=== PATIENT | male | born 1955 | race Caucasian/White ===

== ENCOUNTER 2020-05-13 04:20 | Inpatient (IN) | payer MEDICARE ==
[~2020-05-13] VITALS: Ht 175.3 cm; Wt 113.4 kg
--- NOTE | 2020-05-13 04:44 | NUR ---
rajeev Hays from home c/o sob, general weakness, fever x 1 week, worse tonight to er bed 5 awaiting md mckeon
--- NOTE | 2020-05-13 05:18 | NUR ---
tech at beside for xray
--- NOTE | 2020-05-13 05:30 | NUR ---
covid swab collected and sent to lab
[2020-05-13 05:46] LABS: BASOPHILS % (AUTO) 0.2 % (0.0-2.0); HEMATOCRIT 44 % (39-51); HEMOGLOBIN 14.9 g/dL (13.5-17.5); LYMPHOCYTES # (AUTO) 1.7 /CMM (0.8-4.8); LYMPHOCYTES % (AUTO) 26.6 % (20.0-44.0); MEAN CORPUSCULAR HGB CONC 34 g/dl (31.0-36.0); MEAN CORPUSCULAR VOLUME 86 fL (80-96); MONOCYTES # (AUTO) 0.6 /CMM (0.1-1.30); MONOCYTES % (AUTO) 8.6 % (2.0-12.0); NEUTROPHILS # (AUTO) 4.2 /CMM (1.8-8.9); NEUTROPHILS % (AUTO) 64.6 % (43.0-81.0); PLATELET COUNT (AUTO) 230 /CMM (150-450); RED BLOOD CELL COUNT(AUTO) 5.11 MIL/uL (4.5-6.0); WHITE BLOOD COUNT (AUTO) 6.6 K/uL (4.3-11.0)
[2020-05-13 05:54] LABS: CALCIUM, SERUM 8.6 mg/dL (8.5-10.1); CREATININE 0.9 mg/dL (0.6-1.3); POTASSIUM 3.1 mmol/L (3.5-5.1)
[2020-05-13 06:06] LABS: ALBUMIN 2.4 g/dL (3.4-5.0); BILIRUBIN,DIRECT 0.2 mg/dL (0.0-0.2); BILIRUBIN,TOTAL 0.3 mg/dL (0.2-1.0)
[2020-05-13] MEDS ORDERED: CEFTRIAXONE 1 G in IV D5W 50 ML IV SCH (06:30)
[2020-05-13] MEDS ORDERED: DEXAMETHASONE SOD PHOSPHATE 10 MG/ML VIAL IV ONE (06:30)
[2020-05-13] MEDS ORDERED: AZITHROMYCIN 500 MG in IV D5W 250 ML IV ONE (06:30)
[2020-05-13] MEDS ORDERED: AZITHROMYCIN 500 MG VIAL ONE (06:53)
[2020-05-13] MEDS ORDERED: CEFTRIAXONE 1GM BAG (ER ONLY) 50 ML IV ONE (06:53)
[2020-05-13] MEDS ORDERED: DEXAMETHASONE SOD PHOSPHATE 10 MG/ML VIAL ONE (06:53)
--- NOTE | 2020-05-13 07:15 | NUR ---
lab called,covid possitive
--- NOTE | 2020-05-13 08:00 | NUR ---
pt in bed aaox4. breathing even and unlabored. on o2 via nc @ 2lpm satting @ 95%.
[2020-05-13] MEDS ORDERED: ACETAMINOPHEN 325 MG TABLET PO PRN (09:00)
[2020-05-13] MEDS ORDERED: Z GUARD REMEDY 2 OZ OINT TP PRN (09:00)
[2020-05-13] MEDS ORDERED: MAG HYDROX/AL HYDROX/SIMETH 30 ML UDC PO PRN (09:00)
[2020-05-13] MEDS ORDERED: MAGNESIUM HYDROXIDE 30 ML UDC PO PRN (09:00)
[2020-05-13] MEDS ORDERED: ONDANSETRON HCL/PF 4 MG/2 ML VIAL IVP PRN (09:00)
[2020-05-13] MEDS ORDERED: DULO60CA45 PO (09:18)
[2020-05-13] MEDS: DEXAMETHASONE SOD PHOSPHATE 10 MG/ML VIAL IV SCH (10:00)
[2020-05-13] MEDS: ENOXAPARIN SODIUM 40 MG/0.4 ML DISP.SYRIN SQ SCH (10:00)
--- NOTE | 2020-05-13 12:30 | NUR ---
pt provided with food
--- NOTE | 2020-05-13 16:00 | NUR ---
PT IN BED RESTING AND WATCHING ON HIS PHONE. NAD
[2020-05-13] MEDS: ASPIRIN 81 MG TAB.CHEW PO SCH (19:28)
--- NOTE | 2020-05-13 19:39 | NUR ---
PT ENDOSED TO [facility]
--- NOTE | 2020-05-13 22:55 | NUR ---
TOOK OVER PT CARE. PT AAOX4. RESTING COMFORTABLY. PT REPOSITIONED, PROVIDED WITH WARM BLANEKTS. ON CRYPTOGRAPHIC CLERK AND PULSE OX. CALL LIGHT AT BEDSIDE. VSS. REMASINS ON 2L NC. SAT 97%.
[2020-05-14 03:44] LABS: BASOPHILS % (AUTO) 0.5 % (0.0-2.0); HEMATOCRIT 47 % (39-51); LYMPHOCYTES # (AUTO) 1.6 /CMM (0.8-4.8); LYMPHOCYTES % (AUTO) 22.2 % (20.0-44.0); MEAN CORPUSCULAR HGB CONC 34 g/dl (31.0-36.0); MEAN CORPUSCULAR VOLUME 87 fL (80-96); MONOCYTES # (AUTO) 0.6 /CMM (0.1-1.30); MONOCYTES % (AUTO) 8.2 % (2.0-12.0); NEUTROPHILS % (AUTO) 69.1 % (43.0-81.0); PLATELET COUNT (AUTO) 252 /CMM (150-450); RED BLOOD CELL COUNT(AUTO) 5.45 MIL/uL (4.5-6.0); WHITE BLOOD COUNT (AUTO) 7.3 K/uL (4.3-11.0)
[2020-05-14 03:55] LABS: CALCIUM, SERUM 9.5 mg/dL (8.5-10.1); CREATININE 1.1 mg/dL (0.6-1.3); MAGNESIUM 2.4 mg/dL (1.8-2.4); PHOSPHORUS 4.5 mg/dL (2.5-4.9); POTASSIUM 3.9 mmol/L (3.5-5.1)
--- NOTE | 2020-05-14 07:05 | NUR ---
PT IN BED AWAKE AND ALERT. BREATHING EVENLY . ON SUPPLEMENTAL O2 VIA NC. NO SOB. AFEBRILE. NO C/O PAIN OR DISCOMFORT . NEEDS ATTENDED. BED LOW LOCKED . CALL LIGHT WITHIN REACH. WILL CONT TO MONITOR ,
[2020-05-14] MEDS: PANTOPRAZOLE 40 MG TABLET.DR PO SCH (07:07)
[2020-05-14] MEDS: ASPIRIN 81 MG TAB.CHEW PO SCH (09:55)
[2020-05-14] MEDS: DEXAMETHASONE SOD PHOSPHATE 10 MG/ML VIAL IV SCH (09:55)
[2020-05-14] MEDS: ENOXAPARIN SODIUM 40 MG/0.4 ML DISP.SYRIN SQ SCH (09:55)
--- NOTE | 2020-05-14 12:30 | NUR ---
Pt was sleeping in bed. easily arrousable. meal provided
[2020-05-14] MEDS ORDERED: DEXTROSE 50%-WATER 50 ML DISP.SYRIN IV PRN (13:30)
--- NOTE | 2020-05-14 15:50 | NUR ---
pt ambulated to bathroom on steady gait w/o assist.
[2020-05-14] MEDS ORDERED: REMDESIVIR (CHARGED) 200 MG, *LOADING DOSE 1 EA in IV NS 0.9% 210 ML IV ONE (16:30)
[2020-05-14] MEDS: BLOOD SUGAR DIAGNOSTIC 1 EACH STRIP VI SCH ×2 (19:30→21:41)
[2020-05-14] MEDS: INSULIN REGULAR, HUMAN 100 UNIT/ML 3 ML VIAL SQ PRN (20:04)
--- NOTE | 2020-05-14 20:55 | NUR ---
pt given new gown to change into. bed linens changed as well. pt's needs attended to.
--- NOTE | 2020-05-14 21:40 | NUR ---
ACCUCHECK FOR LANTUS AND REGULAR INSULIN HS. RESULT 398
[2020-05-14] MEDS: INSULIN GLARGINE, 100 UNIT/ML CARTRIDGE SQ SCH (21:45)
[2020-05-14] MEDS: *INSULIN REGULAR(HUMULIN R)HUM 100 UNIT/ML VIAL SQ PRN (21:45)
--- NOTE | 2020-05-14 22:34 | NUR ---
PT ENDORSED TO [facility]
[2020-05-15 04:33] LABS: BASOPHILS % (AUTO) 0.1 % (0.0-2.0); HEMATOCRIT 48 % (39-51); HEMOGLOBIN 16.1 g/dL (13.5-17.5); LYMPHOCYTES # (AUTO) 2.1 /CMM (0.8-4.8); LYMPHOCYTES % (AUTO) 13.2 % (20.0-44.0); MEAN CORPUSCULAR HGB CONC 33 g/dl (31.0-36.0); MEAN CORPUSCULAR VOLUME 87 fL (80-96); MONOCYTES # (AUTO) 0.7 /CMM (0.1-1.30); MONOCYTES % (AUTO) 4.6 % (2.0-12.0); NEUTROPHILS # (AUTO) 12.8 /CMM (1.8-8.9); NEUTROPHILS % (AUTO) 82.1 % (43.0-81.0); PLATELET COUNT (AUTO) 299 /CMM (150-450); RED BLOOD CELL COUNT(AUTO) 5.55 MIL/uL (4.5-6.0); WHITE BLOOD COUNT (AUTO) 15.6 K/uL (4.3-11.0)
[2020-05-15 04:50] LABS: ALBUMIN 2.4 g/dL (3.4-5.0); BILIRUBIN,DIRECT 0.1 mg/dL (0.0-0.2); BILIRUBIN,TOTAL 0.4 mg/dL (0.2-1.0); CALCIUM, SERUM 9.8 mg/dL (8.5-10.1); POTASSIUM 4.6 mmol/L (3.5-5.1); TOTAL PROTEIN, SERUM 7.3 g/dL (6.4-8.2)
[2020-05-15] MEDS: BLOOD SUGAR DIAGNOSTIC 1 EACH STRIP VI SCH ×4 (07:56→22:23)
--- NOTE | 2020-05-15 07:57 | NUR ---
assume patient care. vss. BG check 156. provided w/ meal tray. no appetite at this time. requested orange juice. provided.
[2020-05-15] MEDS: PANTOPRAZOLE 40 MG TABLET.DR PO SCH (08:09)
[2020-05-15] MEDS: ASPIRIN 81 MG TAB.CHEW PO SCH (09:16)
[2020-05-15] MEDS: DEXAMETHASONE SOD PHOSPHATE 10 MG/ML VIAL IV SCH (09:22)
[2020-05-15] MEDS: ENOXAPARIN SODIUM 40 MG/0.4 ML DISP.SYRIN SQ SCH (09:23)
[2020-05-15] MEDS: INSULIN REGULAR, HUMAN 100 UNIT/ML 3 ML VIAL SQ PRN ×3 (09:24→17:52)
--- NOTE | 2020-05-15 14:10 | NUR ---
provided w/ meal tray. stable vitals. need attended.
[2020-05-15] MEDS: REMDESIVIR (CHARGED) 100 MG in IV NS 0.9% 230 ML IV SCH (18:34)
--- NOTE | 2020-05-15 19:35 | NUR ---
REPORT GIVEN TO ТАТЬЯНА NORWOOD FOR CORIE.
--- NOTE | 2020-05-15 19:40 | NUR ---
rec'd pt in bed awake and alert. pt was placed on o2 at 10lpm via simple mask due to low o2 sat and non compliance with NC. pt was advised to keep the mask on at all time. pt is requesting ambien due to inability to sleep at night, will be carried out. no s/s of hypo or hyperglycemia noted . all needs attended. warm blanket applied. bed in low locked position w. call light within reach,. will cont to monitor,
[2020-05-15] MEDS ORDERED: ZOLPIDEM TARTRATE 5 MG TABLET ONE (21:45)
[2020-05-15] MEDS: INSULIN GLARGINE, 100 UNIT/ML CARTRIDGE SQ SCH (22:23)
[2020-05-15] MEDS: ZOLPIDEM TARTRATE 5 MG TABLET PO PRN (22:24)
[2020-05-15] MEDS: *INSULIN REGULAR(HUMULIN R)HUM 100 UNIT/ML VIAL SQ PRN (22:27)
--- NOTE | 2020-05-15 22:28 | NUR ---
AMBIEN GIVEN PER PT'S REQUEST AND C/O INSOMNIA. PT WAS PLACED ON O2 AT 10LPM VIA SIMPLE MASK AND REMAINED ON COBOL APPLICATION DEVELOPER .
--- NOTE | 2020-05-15 23:25 | NUR ---
pt in bed resting comfortably. breathing evenly. on ongoing o2 supplement . tolerated well. no s/s or c/o SOB or pain or discomfrot ./ will cont to monitor ,
--- NOTE | 2020-05-16 03:13 | NUR ---
ELEVATED WITH BLOOD COUNT WS RELAYED TO MICHAEL BILLY, [facility] HOSPITALIST WITH A NEW ORDER FOR PROCALCITONIN AND CXR IN AM. NEW ORDER NOTED. PT REMAINED AFEBRILE W/ STABLE VS. WILL CONT TO MONITOR ,
[2020-05-16 05:38] LABS: ALBUMIN 2.2 g/dL (3.4-5.0); BILIRUBIN,DIRECT 0.2 mg/dL (0.0-0.2); BILIRUBIN,TOTAL 0.3 mg/dL (0.2-1.0); CALCIUM, SERUM 9.2 mg/dL (8.5-10.1); CREATININE 0.9 mg/dL (0.6-1.3); MAGNESIUM 2.3 mg/dL (1.8-2.4); PHOSPHORUS 3.7 mg/dL (2.5-4.9); POTASSIUM 4.6 mmol/L (3.5-5.1); TOTAL PROTEIN, SERUM 6.9 g/dL (6.4-8.2)
[2020-05-16] MEDS: PANTOPRAZOLE 40 MG TABLET.DR PO SCH (08:30)
[2020-05-16] MEDS: BLOOD SUGAR DIAGNOSTIC 1 EACH STRIP VI SCH ×4 (08:30→22:01)
--- NOTE | 2020-05-16 08:30 | NUR ---
bs checked 172
[2020-05-16] MEDS: DEXAMETHASONE SOD PHOSPHATE 10 MG/ML VIAL IV SCH (08:44)
[2020-05-16] MEDS: ASPIRIN 81 MG TAB.CHEW PO SCH (08:44)
[2020-05-16] MEDS: ENOXAPARIN SODIUM 40 MG/0.4 ML DISP.SYRIN SQ SCH (08:46)
--- NOTE | 2020-05-16 09:11 | NUR ---
provided pt with breakfast but pt states that he does not want to eat at the moment b/c he doesnt have any appetite. bs insulin sliding scale held.
[2020-05-16 09:33] LABS: BASOPHILS % (AUTO) 0.2 % (0.0-2.0); HEMATOCRIT 46 % (39-51); HEMOGLOBIN 15.4 g/dL (13.5-17.5); LYMPHOCYTES # (AUTO) 1.9 /CMM (0.8-4.8); LYMPHOCYTES % (AUTO) 18.1 % (20.0-44.0); MEAN CORPUSCULAR HGB CONC 33 g/dl (31.0-36.0); MEAN CORPUSCULAR VOLUME 87 fL (80-96); MONOCYTES # (AUTO) 0.7 /CMM (0.1-1.30); MONOCYTES % (AUTO) 6.3 % (2.0-12.0); NEUTROPHILS % (AUTO) 75.4 % (43.0-81.0); PLATELET COUNT (AUTO) 276 /CMM (150-450); WHITE BLOOD COUNT (AUTO) 10.7 K/uL (4.3-11.0)
[2020-05-16] MEDS: INSULIN REGULAR, HUMAN 100 UNIT/ML 3 ML VIAL SQ PRN ×2 (12:08→18:07)
--- NOTE | 2020-05-16 12:33 | NUR ---
provided pt with lunch ate 75%
[2020-05-16] MEDS: REMDESIVIR (CHARGED) 100 MG in IV NS 0.9% 230 ML IV SCH (16:00)
--- NOTE | 2020-05-16 18:27 | NUR ---
IV LINE RE-INSERTED ON LEFT AC G20
--- NOTE | 2020-05-16 19:30 | NUR ---
Note chrisone in EDM - 05/16/20 at 2041 by ANTHONY REC'D PT IN BED AWAKE , STASNDING AT BED SIDE. HAS REMOVED HIS SUPPLEMENTAL O2 . SATTING ON 70s. PT WAS ASSISTED BACK IN BED AND PLACED PT BACK ON HIGH FLOW O2 AND NON REBREATHER MASK. PT WAS ADVISED TO STAY IN BED AND KEEP THE O2 SUPLEMNTS DEVISES IN PLACE. PT WAS PLACED BACK ON FULL MONITOR. AND STAYED WITH PT. O2 SATURATION GRADULLY INCREASED TO 90s. WILL CONT TO MONITOR.
--- NOTE | 2020-05-16 19:32 | NUR ---
REC'D PT IN BED AWAKEAND ALERT. ON NON REBREATHER MASK, BREATHING EVENLY. PT WAS ADVISED TO KEEP THE O2 MASK IN PLACE. REMAINED O2 MONITOR.
--- NOTE | 2020-05-16 20:30 | NUR ---
Note tremayne in EDM - 05/16/20 at 2041 by ANTHONY FOUND PT SATTING ON 76% ON MONTIOR, CHECKED ON PT. NOTED PT REMOVED HIS MASK AND HIGH FLOW O2. PT WAS ADVISED TO KEEP THE SUPPLEMENTAL O2 IN PLACE. WILL CONT TO MONITOR ,
[2020-05-16] MEDS ORDERED: ZOLPIDEM TARTRATE 5 MG TABLET ONE (21:31)
[2020-05-16] MEDS: INSULIN GLARGINE, 100 UNIT/ML CARTRIDGE SQ SCH (22:01)
[2020-05-16] MEDS: *INSULIN REGULAR(HUMULIN R)HUM 100 UNIT/ML VIAL SQ PRN (22:05)
--- NOTE | 2020-05-16 22:05 | NUR ---
w/ c/o insomnia, requesting ambien given ,. pt remained on o2 at 15lpm via non rebreather mask and on full monitor
[2020-05-17 04:38] LABS: BASOPHILS % (AUTO) 0.1 % (0.0-2.0); HEMATOCRIT 46 % (39-51); HEMOGLOBIN 15.3 g/dL (13.5-17.5); LYMPHOCYTES # (AUTO) 1.3 /CMM (0.8-4.8); MEAN CORPUSCULAR HGB CONC 33 g/dl (31.0-36.0); MEAN CORPUSCULAR VOLUME 87 fL (80-96); MONOCYTES # (AUTO) 0.6 /CMM (0.1-1.30); MONOCYTES % (AUTO) 5.1 % (2.0-12.0); NEUTROPHILS # (AUTO) 9.8 /CMM (1.8-8.9); NEUTROPHILS % (AUTO) 83.8 % (43.0-81.0); PLATELET COUNT (AUTO) 291 /CMM (150-450); RED BLOOD CELL COUNT(AUTO) 5.31 MIL/uL (4.5-6.0); WHITE BLOOD COUNT (AUTO) 11.7 K/uL (4.3-11.0)
[2020-05-17 04:52] LABS: ALBUMIN 2.1 g/dL (3.4-5.0); BILIRUBIN,DIRECT 0.1 mg/dL (0.0-0.2); BILIRUBIN,TOTAL 0.3 mg/dL (0.2-1.0); CALCIUM, SERUM 9.5 mg/dL (8.5-10.1); CREATININE 0.9 mg/dL (0.6-1.3); MAGNESIUM 2.3 mg/dL (1.8-2.4); PHOSPHORUS 3.6 mg/dL (2.5-4.9); POTASSIUM 3.9 mmol/L (3.5-5.1); TOTAL PROTEIN, SERUM 6.9 g/dL (6.4-8.2)
[2020-05-17] MEDS: BLOOD SUGAR DIAGNOSTIC 1 EACH STRIP VI SCH ×4 (07:24→22:17)
[2020-05-17] MEDS: INSULIN REGULAR, HUMAN 100 UNIT/ML 3 ML VIAL SQ PRN ×3 (07:35→18:46)
[2020-05-17] MEDS: PANTOPRAZOLE 40 MG TABLET.DR PO SCH (07:35)
[2020-05-17] MEDS: DEXAMETHASONE SOD PHOSPHATE 10 MG/ML VIAL IV SCH (09:45)
[2020-05-17] MEDS: ENOXAPARIN SODIUM 40 MG/0.4 ML DISP.SYRIN SQ SCH (09:45)
[2020-05-17] MEDS: ASPIRIN 81 MG TAB.CHEW PO SCH (09:45)
[2020-05-17] MEDS: REMDESIVIR (CHARGED) 100 MG in IV NS 0.9% 230 ML IV SCH (17:30)
--- NOTE | 2020-05-17 19:40 | NUR ---
REC'S PT IN BED AWAKE AND ALERT. BREATHING EVENLY, ON O2 AT 15LPM VIA NON REBREATHER MASK JANES WELL . NO SOB. NO C/O PAIN OR DISCOMFORT . BED LOW LOCKED . CALL LIGHT WITHIN REACH. WILL CONT TO MONITOR ,
[2020-05-17] MEDS ORDERED: ZOLPIDEM TARTRATE 5 MG TABLET ONE (20:41)
--- NOTE | 2020-05-17 21:00 | NUR ---
CONSENT FOR CONVASCENT PLASMA INFUSION WAS OBTAINED FROM THE PT WHO PERSONALLY SIGNED THE FORM .
--- NOTE | 2020-05-17 21:20 | NUR ---
A NEW PIV 18G STARTED ON RAC W/ GOOD BLOOD DRAW. PLASMA TRANSFUSION STARTED . A SET OF PRE TRANSFION VS OBTAINED . AFEBRILE WITH NO C/O PAIN OR DISCOMFORT. WILL CONT TO MONITOR FOR ANY A/R
--- NOTE | 2020-05-17 22:00 | NUR ---
CONVALESCENT PLASMA INFUSION COMPLETED W. NO A/D, NO CP, NO C/O FLANK PAIN. AFEBRILE. PT DNEIED ANY PAIN OR DISCOMFORT . VSS. WILL CONT TO MONITOR,
[2020-05-17] MEDS: INSULIN GLARGINE, 100 UNIT/ML CARTRIDGE SQ SCH (22:17)
[2020-05-17] MEDS: ZOLPIDEM TARTRATE 5 MG TABLET PO PRN (22:17)
--- NOTE | 2020-05-17 22:17 | NUR ---
w/ c/o insomnia, requesting ambien given ,. pt remained on o2 at 15lpm via non rebreather mask and on full monitor
[2020-05-17] MEDS: *INSULIN REGULAR(HUMULIN R)HUM 100 UNIT/ML VIAL SQ PRN (22:18)
--- NOTE | 2020-05-17 23:30 | NUR ---
PT IN BED SLEEPING . AROUSES EASILY. BREATHING EVENLY. ON ONGOING MONITORING
[2020-05-18 05:29] LABS: BASOPHILS # (AUTO) 0.2 /CMM (0.0-0.2); BASOPHILS % (AUTO) 1.6 % (0.0-2.0); EOSINOPHILS % (AUTO) 0.1 % (0.0-6.0); HEMATOCRIT 47 % (39-51); HEMOGLOBIN 15.8 g/dL (13.5-17.5); LYMPHOCYTES # (AUTO) 1.5 /CMM (0.8-4.8); LYMPHOCYTES % (AUTO) 11.6 % (20.0-44.0); MEAN CORPUSCULAR HGB CONC 34 g/dl (31.0-36.0); MEAN CORPUSCULAR VOLUME 87 fL (80-96); MONOCYTES # (AUTO) 0.6 /CMM (0.1-1.30); MONOCYTES % (AUTO) 4.6 % (2.0-12.0); NEUTROPHILS # (AUTO) 10.6 /CMM (1.8-8.9); NEUTROPHILS % (AUTO) 82.1 % (43.0-81.0); PLATELET COUNT (AUTO) 341 /CMM (150-450); RED BLOOD CELL COUNT(AUTO) 5.41 MIL/uL (4.5-6.0); WHITE BLOOD COUNT (AUTO) 12.9 K/uL (4.3-11.0)
[2020-05-18 06:17] LABS: ALBUMIN 2.4 g/dL (3.4-5.0); BILIRUBIN,DIRECT 0.2 mg/dL (0.0-0.2); BILIRUBIN,TOTAL 0.3 mg/dL (0.2-1.0); CALCIUM, SERUM 9.5 mg/dL (8.5-10.1); CREATININE 0.8 mg/dL (0.6-1.3); MAGNESIUM 2.1 mg/dL (1.8-2.4); PHOSPHORUS 3.5 mg/dL (2.5-4.9); POTASSIUM 3.6 mmol/L (3.5-5.1); TOTAL PROTEIN, SERUM 7.3 g/dL (6.4-8.2)
[2020-05-18 06:30] VITALS: BP 144/82
--- NOTE | 2020-05-18 06:39 | NUR ---
pt was transferred to md 2 rm [id number] under ACLS
--- NOTE | 2020-05-18 06:40 | NUR ---
TELE/RN ADMITTING NOTES: RECEIVED REPORT FROM ER NURSE ТАТЬЯНА PT ARRIVED TO THE UNIT IN STABLE CONDITION UNDER ACLS PROTOCOL. PT IS ON NON REBREATHER 10L. NO SOB NOTED, NO S/S OF ACUTE DISTRESS. BREATHING EVEN AND UNLABORED. NO C/O PAIN AT THIS TIME. IV ON THE LAC #20G AND RAC #18G SL. PT IS A/OX4, VERBALLY RESPONSIVE AND ABLE TO MAKE NEEDS KNOWN. AMBULATORY WITH STANDBY ASSIST PER ER NURSE. ON CARDIAC MONITORING WITH READING OF SR 60'S WITH PACS. S/P CONVALESCENT PLASMA GIVEN IN THE ER 05/17/25. SAFETY MEASURES IN PLACE. BED IN LOW, LOCKED POSITION WITH SR UP X2. CALL LIGHT WITHIN REACH. ORIENTED TO UNIT AND STAFF. CALL LIGHT WITHIN REACH AND WILL ENDORSE TO DAY SHIFT FOR CORIE.
[2020-05-18] MEDS: INSULIN REGULAR, HUMAN 100 UNIT/ML 3 ML VIAL SQ PRN ×2 (07:00→11:43)
[2020-05-18] MEDS: BLOOD SUGAR DIAGNOSTIC 1 EACH STRIP VI SCH ×4 (07:00→21:43)
--- NOTE | 2020-05-18 07:25 | NUR ---
SPEECH AND LANGUAGE TUTOR NOTES PATIENT RECEIVED IN BED, ALERT AND ORIENTED 3-4. ON SIMPLE FACE MASK 10L, TOLERATING OXYGEN AT THIS TIME WITH NO RESPIRATORY DISTRESS PRESENT AT THIS TIME. ON COMFORT ADVISOR, SINUS RHYTHM, 79 WITH PAC'S. SKIN WARM AND DRY TO TOUCH. IV ACCESS INTACT AND PATENT. PATIENT PRESENTING WITH NO PAIN AT THIS TIME. SAFETY PRECAUTIONS IMPLEMENTED WITH BED LOCKED, BILATERAL SIDE RAILS UP, BED ALARM ON, BED IN THE LOWEST POSITION, AND CALL LIGHT WITHIN EASY REACH. WILL CONTINUE TO MONITOR PATIENT.
[2020-05-18 08:00] VITALS: BP_SYST 139; BP_SYST 144; BP_DIAS 82; BP_DIAS 91
[2020-05-18] MEDS: DEXAMETHASONE SOD PHOSPHATE 10 MG/ML VIAL IV SCH (09:06)
[2020-05-18] MEDS: PANTOPRAZOLE 40 MG TABLET.DR PO SCH (09:06)
[2020-05-18] MEDS: ASPIRIN 81 MG TAB.CHEW PO SCH (09:06)
[2020-05-18] MEDS: ENOXAPARIN SODIUM 40 MG/0.4 ML DISP.SYRIN SQ SCH (09:11)
[2020-05-18 12:00] VITALS: BP 113/54
[2020-05-18 16:00] VITALS: BP 131/69
[2020-05-18] MEDS: REMDESIVIR (CHARGED) 100 MG in IV NS 0.9% 230 ML IV SCH (17:02)
[2020-05-18] MEDS: *INSULIN REGULAR(HUMULIN R)HUM 100 UNIT/ML VIAL SQ PRN ×2 (17:15→22:32)
--- NOTE | 2020-05-18 18:56 | NUR ---
BOTTOM HOOP DRIVER NOTES PATIENT IN BED, ALERT AND ORIENTED X 3-4. ON SIMPLE FACE MASK 10L, TOLERATING OXYGEN AT THIS TIME WITH NO RESPIRATORY DISTRESS PRESENT AT THIS TIME. ON LIBRARY MEDIA ASSISTANT, SINUS RHYTHM, PATIENT SKIN KEPT CLEAN, WARM AND DRY TO TOUCH. IV ACCESS INTACT AND PATENT. MET ALL OF PATIENT'S NEEDS. PATIENT PRESENTING WITH NO PAIN AT THIS TIME. SAFETY PRECAUTIONS IMPLEMENTED WITH BED LOCKED, BILATERAL SIDE RAILS UP, BED ALARM ON, BED IN THE LOWEST POSITION, AND CALL LIGHT WITHIN EASY REACH. WILL ENDORSE PLAN OF CARE TO UPCOMING RN.
--- NOTE | 2020-05-18 19:35 | NUR ---
TELE/RN OPENING NOTES: PATIENT RECEIVED IN BED, ALERT AND ORIENTED 3-4. ON SIMPLE FACE MASK 10L, TOLERATING OXYGEN AT THIS TIME, NO RESPIRATORY DISTRESS PRESENT AT THIS TIME. ON LAMINATING MACHINE OPERATOR HELPER, SINUS RHYTHM, 79 WITH PAC'S. SKIN WARM AND DRY TO TOUCH. IV ACCESS INTACT AND PATENT. NO COMPLAINS OF PAIN AT THIS TIME. SAFETY PRECAUTIONS IMPLEMENTED WITH BED LOCKED, BILATERAL SIDE RAILS UP, BED ALARM ON, BED IN THE LOWEST POSITION, AND CALL LIGHT WITHIN EASY REACH. WILL CONTINUE TO MONITOR PATIENT.
[2020-05-18 20:00] VITALS: BP 102/58
--- NOTE | 2020-05-18 21:50 | NUR ---
TELE/RN NOTES: PATIENT'S INSULIN LANTUS GLARGINE UNAVAILABLE AT THE FLOOR. CALLED ER TO CHECK IF THEY HAVE THE PATIENT'S MED. AND PER ER NURSE JORDAN, NOWHERE TO BE FOUND. WILL CALL NURSING PEOPLESOFT HCM DEVELOPER TO STOCK MED.
--- NOTE | 2020-05-18 22:00 | NUR ---
TELE/RN NOTES: ACCUCHECK FOR HS IS 316. 8UNITS REG INSULIN COVERAGE GIVEN PER SLIDING SCALE. PT IS STABLE. NO S/S OF HYPOGLYCEMIA/HYPERGLYCEMIA. GIVEN A SNACK TO PREVENT SUDDEN HYPOGLYCEMIA. WILL KEEP MONITORING.
--- NOTE | 2020-05-18 22:01 | NUR ---
TELE/RN NOTES: CALLED NURSING NETWORK PROGRAMMER ARA REGARDING PT'S INSULIN LANTUS GLARGINE UNAVAILABLE AT THE FLOOR. PER NURSING SUP, SHE WILL BRING IT UP TO THE FLOOR WHEN IT'S AVAILABLE.
[2020-05-18] MEDS ORDERED: INSULIN GLARGINE, 100 UNIT/ML CARTRIDGE SQ ONE (22:37)
[2020-05-18] MEDS ORDERED: HYDROCODONE/APAP 5/325MG TABLET ONE (22:40)
[2020-05-18] MEDS: HYDROCODONE/APAP 5/325MG TABLET PO PRN (22:45)
[2020-05-18] MEDS: INSULIN GLARGINE, 100 UNIT/ML CARTRIDGE SQ SCH (22:51)
[2020-05-19] VITALS (7 sets, daily range): BP systolic 107–135; BP diastolic 62–85
--- NOTE | 2020-05-19 06:29 | NUR ---
TELE/RN CLOSING NOTES: PATIENT REMAINS IN BED, ALERT AND ORIENTED X4. NO SIGNIFICANT CHANGES IN CONDITION. ON SIMPLE FACE MASK 10L, TOLERATING OXYGEN AT THIS TIME WITH NO RESPIRATORY DISTRESS PRESENT AT THIS TIME. SATURATING AT 94%. ON BRUSH FILLER HAND WITH READING OF SR 61. IV ACCESS REMAINS INTACT AND PATENT. ALL OF NURSING NEEDS MET AND RENDERED. ALL DUE MEDS GIVEN ORDERED. DENIES PAIN AT THIS TIME. SAFETY PRECAUTIONS IMPLEMENTED WITH BED LOCKED, BILATERAL SIDE RAILS UP, BED ALARM ON, BED IN THE LOWEST POSITION, AND CALL LIGHT WITHIN EASY REACH. WILL ENDORSE PLAN OF CARE TO DAYSHIFT RN.
--- NOTE | 2020-05-19 06:51 | NUR ---
TELE/RN NOTES: ACCUCHECK FOR AC IS 75. NO REG INSULIN COVERAGE GIVEN PER SLIDING SCALE. PT IS STABLE. NO S/S OF HYPOGLYCEMIA/HYPERGLYCEMIA. GIVEN A CRANBERRY JUICE PREVENT SUDDEN HYPOGLYCEMIA. WILL KEEP MONITORING.
[2020-05-19 06:53] LABS: BASOPHILS % (AUTO) 0.1 % (0.0-2.0); EOSINOPHILS % (AUTO) 0.1 % (0.0-6.0); HEMATOCRIT 43 % (39-51); HEMOGLOBIN 14.6 g/dL (13.5-17.5); LYMPHOCYTES # (AUTO) 2.3 /CMM (0.8-4.8); LYMPHOCYTES % (AUTO) 20.3 % (20.0-44.0); MEAN CORPUSCULAR HGB CONC 34 g/dl (31.0-36.0); MEAN CORPUSCULAR VOLUME 86 fL (80-96); MONOCYTES # (AUTO) 0.6 /CMM (0.1-1.30); MONOCYTES % (AUTO) 5.4 % (2.0-12.0); NEUTROPHILS # (AUTO) 8.3 /CMM (1.8-8.9); NEUTROPHILS % (AUTO) 74.1 % (43.0-81.0); PLATELET COUNT (AUTO) 338 /CMM (150-450); RED BLOOD CELL COUNT(AUTO) 4.99 MIL/uL (4.5-6.0); WHITE BLOOD COUNT (AUTO) 11.2 K/uL (4.3-11.0)
[2020-05-19 07:14] LABS: ALBUMIN 2.1 g/dL (3.4-5.0); BILIRUBIN,DIRECT 0.2 mg/dL (0.0-0.2); BILIRUBIN,TOTAL 0.4 mg/dL (0.2-1.0); CALCIUM, SERUM 8.8 mg/dL (8.5-10.1); CREATININE 0.7 mg/dL (0.6-1.3); PHOSPHORUS 3.4 mg/dL (2.5-4.9); POTASSIUM 3.2 mmol/L (3.5-5.1); TOTAL PROTEIN, SERUM 6.6 g/dL (6.4-8.2)
--- NOTE | 2020-05-19 07:45 | NUR ---
RN NOTES Patient Received. Patient is noted in bed, awake, alert and oriented x4. Breathing even and non labored currently on 10L via Simple face mask. Patient was noted to be short of breath and noted with a low grade fever of 99.1. patient was placed on 15L via NRB with saturation noted to be 95%. Patient is noted with IV site to R AC 18G. Skin is intact. bed is in lowest position and locked. All needs attended to promptly. Will continue plan of care as ordered.
[2020-05-19] MEDS: BLOOD SUGAR DIAGNOSTIC 1 EACH STRIP VI SCH ×4 (09:02→22:21)
[2020-05-19] MEDS: ASPIRIN 81 MG TAB.CHEW PO SCH (09:08)
[2020-05-19] MEDS: PANTOPRAZOLE 40 MG TABLET.DR PO SCH (09:08)
[2020-05-19] MEDS: DEXAMETHASONE SOD PHOSPHATE 10 MG/ML VIAL IV SCH (09:08)
[2020-05-19] MEDS: ENOXAPARIN SODIUM 40 MG/0.4 ML DISP.SYRIN SQ SCH (09:09)
[2020-05-19] MEDS ORDERED: POTASSIUM CHLORIDE 20 MEQ TAB.PRT.SR PO ONE (11:00)
--- NOTE | 2020-05-19 12:00 | NUR ---
RN NOTE Patient noted with a temp of 97.9. No fever or chills noted. will continue to monitor.
[2020-05-19] MEDS: INSULIN REGULAR, HUMAN 100 UNIT/ML 3 ML VIAL SQ PRN ×2 (12:17→17:31)
--- NOTE | 2020-05-19 19:30 | NUR ---
RN NOTES Patient is noted in bed, awake, alert and oriented x4. Breathing even and non labored currently on 15L via NRB and is tolerating well. No acute distress noted. Patient is noted with IV site to left forearm 20G noted to be patent and intact. Accu checks rendered and insulin administered as per order. All medications administered as per order. Bed is in lowest position. All needs attended to promptly. Will continue plan of care as ordered.
--- NOTE | 2020-05-19 20:00 | NUR ---
CHAIRMAN OF THE BOARD NOTES SR-83 ON TELE MONITOR
--- NOTE | 2020-05-19 20:00 | NUR ---
DEVELOPMENT MANAGER NOTES RECEIVED ON BED A/O A/O X4,BREATHING NON LABORED,ON 15L NON RE BREATHER MASK,O2 SAT 95%.WITH SALINE LOCK LEFT FORE ARM INTACT AND PATENT.ISOLATION FOR COVID 19 POSITIVE.CALL LIGHT IN REACH,NEEDS ANTICIPATED.
[2020-05-19] MEDS: *INSULIN REGULAR(HUMULIN R)HUM 100 UNIT/ML VIAL SQ PRN (22:28)
[2020-05-19] MEDS: INSULIN GLARGINE, 100 UNIT/ML CARTRIDGE SQ SCH (22:29)
[2020-05-19] MEDS: HYDROCODONE/APAP 5/325MG TABLET PO PRN (22:47)
[2020-05-19] MEDS ORDERED: HYDROCODONE/APAP 5/325MG TABLET ONE (22:47)
--- NOTE | 2020-05-19 22:47 | NUR ---
STAINED GLASS GLAZIER HELPER NOTES C/O GENERALIZED PAIN,MEDICATED WITH NORCO 5/325MG,1 TAB PO ORDERED.
[2020-05-20] VITALS: BP_SYST 120; BP_SYST 128; BP_DIAS 79; BP_DIAS 80
[2020-05-20 04:00] VITALS: BP 120/80
--- NOTE | 2020-05-20 06:30 | NUR ---
EXTRUSION SUPERVISOR NOTES ACCU-CHECK BLOOD SUGAR CHECK 264,WILL COVER WITH HUMULIN R PER SLIDING SCALE.
[2020-05-20 07:25] LABS: BASOPHILS % (AUTO) 0.1 % (0.0-2.0); EOSINOPHILS % (AUTO) 0.8 % (0.0-6.0); HEMATOCRIT 45 % (39-51); HEMOGLOBIN 14.8 g/dL (13.5-17.5); LYMPHOCYTES # (AUTO) 1.6 /CMM (0.8-4.8); LYMPHOCYTES % (AUTO) 17.9 % (20.0-44.0); MEAN CORPUSCULAR HGB CONC 33 g/dl (31.0-36.0); MEAN CORPUSCULAR VOLUME 87 fL (80-96); MONOCYTES # (AUTO) 0.6 /CMM (0.1-1.30); MONOCYTES % (AUTO) 6.6 % (2.0-12.0); NEUTROPHILS # (AUTO) 6.7 /CMM (1.8-8.9); NEUTROPHILS % (AUTO) 74.6 % (43.0-81.0); PLATELET COUNT (AUTO) 351 /CMM (150-450); RED BLOOD CELL COUNT(AUTO) 5.11 MIL/uL (4.5-6.0)
--- NOTE | 2020-05-20 07:30 | NUR ---
TELE/RN OPENING NOTE Received patient resting in bed, A&O x 4, tagalog speaking. No complaints of pain/discomfort at this time. Breathing even and non-labored on 15 L via Nrb, saturating at 95%. No respiratory or cardiac distress noted. On tele monitor, reading SR 64. L FA #20 IV appears infiltrated and leaking, removed access and placed pressure and clean dry dressing on top. No s/s of infection or bleeding noted on site. Inserted new IV access on R FA #22g, patent and intact, and flushing well. Bed locked to its lowest position, side rails x 2 up, call light in hand. Will continue with current medical management.
--- NOTE | 2020-05-20 07:31 | NUR ---
DISREGARD NOTE BELOW, WRONG PATIENT
[2020-05-20 07:33] LABS: CALCIUM, SERUM 8.8 mg/dL (8.5-10.1); CREATININE 0.8 mg/dL (0.6-1.3); PHOSPHORUS 3.5 mg/dL (2.5-4.9); POTASSIUM 4.1 mmol/L (3.5-5.1)
--- NOTE | 2020-05-20 07:33 | NUR ---
RULING TECHNICIAN NOTES NO SIGNIFICANT CHANGE IN STATUS,95% ON NRB 15L,TOLERATED WELL.IN NOM ACUTE DISTRESS.ENDORSE TO MANOJ NORWOOD FOR CORIE.
--- NOTE | 2020-05-20 07:35 | NUR ---
TELE/RN OPENING NOTE Patient awake in bed, A&O x 4. No complaints of pain/discomfort at this time. Breathing even and non-labored on 15 L via Nrb, saturating at 95%. No respiratory or cardiac distress noted. On tele monitor, reading SR 83. L FA #20. IV appears infiltrated and leaking, removed access and placed pressure and clean dry dressing on top. No s/s of infection or bleeding noted on site. Inserted new IV access on R FA #22g, patent and intact, and flushing well. Bed locked to its lowest position, side rails x 2 up, call light in hand. Will continue with current medical management.
[2020-05-20] MEDS: BLOOD SUGAR DIAGNOSTIC 1 EACH STRIP VI SCH ×4 (07:37→22:07)
[2020-05-20] MEDS: INSULIN REGULAR, HUMAN 100 UNIT/ML 3 ML VIAL SQ PRN ×3 (07:42→17:17)
--- NOTE | 2020-05-20 07:46 | NUR ---
DIRECT CARE PROFESSIONAL NOTES HUMULIN R 9 UNITS GIVEN SQ PER SLIDING SCALE
[2020-05-20 08:00] VITALS: BP 107/55
[2020-05-20] MEDS: PANTOPRAZOLE 40 MG TABLET.DR PO SCH (08:14)
[2020-05-20] MEDS: ENOXAPARIN SODIUM 40 MG/0.4 ML DISP.SYRIN SQ SCH (08:15)
[2020-05-20] MEDS: DEXAMETHASONE SOD PHOSPHATE 10 MG/ML VIAL IV SCH (08:15)
[2020-05-20] MEDS: ASPIRIN 81 MG TAB.CHEW PO SCH (08:15)
[2020-05-20 12:00] VITALS: BP 112/76
[2020-05-20 16:00] VITALS: BP 110/84
--- NOTE | 2020-05-20 19:17 | NUR ---
TELE/RN CLOSING NOTE Patient awake in bed, A&O x 4. All needs met and attended to. No complaints of pain/discomfort at this time. Breathing even and non-labored on 15 L via Nrb, saturating at 99%. No respiratory or cardiac distress noted. On tele monitor, reading SR 71. IV access on R FA #22g, patent and intact, and flushing well. Fall precautions maintained. Will endorse to assistant shift supervisor nurse.
--- NOTE | 2020-05-20 19:30 | NUR ---
TELE/RN OPENING NOTES: PATIENT RECEIVED IN BED, ALERT AND ORIENTED 3-4. ON NONREBREATHER MASK 15L, TOLERATING OXYGEN AT THIS TIME, NO RESPIRATORY DISTRESS PRESENT AT THIS TIME. ON LETTERSET PRESS SET UP OPERATOR, SINUS RHYTHM, 70S. SKIN WARM AND DRY TO TOUCH. IV ACCESS INTACT AND PATENT. NO COMPLAINS OF PAIN AT THIS TIME. SAFETY PRECAUTIONS IMPLEMENTED WITH BED LOCKED, BILATERAL SIDE RAILS UP, BED ALARM ON, BED IN THE LOWEST POSITION, AND CALL LIGHT WITHIN EASY REACH. WILL CONTINUE TO MONITOR PATIENT.
[2020-05-20 20:00] VITALS: BP 130/78
--- NOTE | 2020-05-20 22:00 | NUR ---
TELE/RN NOTES: ACCUCHECK FOR 2199 IS 369. ADMINISTERED 10UNITS REG. INSULIN PER SLIDING SCALE. WILL CONTINUE TO MONITOR.
[2020-05-20] MEDS: *INSULIN REGULAR(HUMULIN R)HUM 100 UNIT/ML VIAL SQ PRN (22:09)
[2020-05-20] MEDS: INSULIN GLARGINE, 100 UNIT/ML CARTRIDGE SQ SCH (22:12)
[2020-05-20] MEDS: HYDROCODONE/APAP 5/325MG TABLET PO PRN (22:17)
[2020-05-21] VITALS (7 sets, daily range): BP systolic 100–162; BP diastolic 68–94
--- NOTE | 2020-05-21 04:51 | NUR ---
TELE/RN OPENING NOTES: PATIENT RECEIVED IN BED, ALERT AND ORIENTED 3-4. ON SIMPLE FACE MASK 10L, TOLERATING OXYGEN AT THIS TIME, NO RESPIRATORY DISTRESS PRESENT AT THIS TIME. ON HARVESTING CONTRACTOR, SINUS RHYTHM, 79 WITH PAC'S. SKIN WARM AND DRY TO TOUCH. IV ACCESS INTACT AND PATENT. NO COMPLAINS OF PAIN AT THIS TIME. SAFETY PRECAUTIONS IMPLEMENTED WITH BED LOCKED, BILATERAL SIDE RAILS UP, BED ALARM ON, BED IN THE LOWEST POSITION, AND CALL LIGHT WITHIN EASY REACH. WILL CONTINUE TO MONITOR PATIENT. Addendum: 05/21/20 at 0503 by JEISON MCDUFFIE RN PLS DISREGARD.
[2020-05-21] MEDS: BLOOD SUGAR DIAGNOSTIC 1 EACH STRIP VI SCH ×4 (06:42→22:47)
[2020-05-21] MEDS: *INSULIN REGULAR(HUMULIN R)HUM 100 UNIT/ML VIAL SQ PRN ×2 (06:43→22:50)
[2020-05-21 06:54] LABS: CALCIUM, SERUM 8.7 mg/dL (8.5-10.1); CREATININE 0.8 mg/dL (0.6-1.3); MAGNESIUM 2.9 mg/dL (1.8-2.4); PHOSPHORUS 2.7 mg/dL (2.5-4.9); POTASSIUM 4.2 mmol/L (3.5-5.1)
--- NOTE | 2020-05-21 07:04 | NUR ---
TELE/RN NOTES: LAB CALLED FOR CRITICAL RESULT FOR GLUCOSE 381. LINING STRAP CLOSER HEVER BILLY MADE AWARE THAT PT WAS GIVEN 10UNITS REG INSULIN PER SLIDING SCALE. NO NEW ORDERS.
[2020-05-21 07:06] LABS: BASOPHILS % (AUTO) 0.1 % (0.0-2.0); EOSINOPHILS % (AUTO) 0.6 % (0.0-6.0); HEMATOCRIT 42 % (39-51); HEMOGLOBIN 14.2 g/dL (13.5-17.5); LYMPHOCYTES # (AUTO) 1.5 /CMM (0.8-4.8); LYMPHOCYTES % (AUTO) 16.8 % (20.0-44.0); MEAN CORPUSCULAR HGB CONC 34 g/dl (31.0-36.0); MEAN CORPUSCULAR VOLUME 87 fL (80-96); MONOCYTES # (AUTO) 0.7 /CMM (0.1-1.30); MONOCYTES % (AUTO) 7.8 % (2.0-12.0); NEUTROPHILS # (AUTO) 6.6 /CMM (1.8-8.9); NEUTROPHILS % (AUTO) 74.7 % (43.0-81.0); PLATELET COUNT (AUTO) 353 /CMM (150-450); RED BLOOD CELL COUNT(AUTO) 4.83 MIL/uL (4.5-6.0); WHITE BLOOD COUNT (AUTO) 8.8 K/uL (4.3-11.0)
--- NOTE | 2020-05-21 07:15 | NUR ---
RN Notes Patient Received. Patient is in bed, awake, alert and oriented x4. Patient is verbally responsive. Breathing even and non labored. Patient is currently on 15L via NRB and tolerating well with no acute distress noted or shortness of breath. Patient continues on tele monitoring noted to be NSR. Patient is noted with IV site to right FA 22G noted to patent and intact. Skin is noted intact and warm. Bed is locked and in lowest position. All needs attended to promptly. Will continue plan of care as ordered.
--- NOTE | 2020-05-21 08:00 | NUR ---
TELE/RN CLOSING NOTES: PATIENT REMAINS IN BED, ALERT AND ORIENTED X4. NO SIGNIFICANT CHANGES IN CONDITION. ON NON REBREATHER MASK 15L, TOLERATING OXYGEN AT THIS TIME WITH NO RESPIRATORY DISTRESS PRESENT AT THIS TIME. SATURATING AT 95%. TO BE TITRATED PT. TOLERATES. ON LEAD NETWORK ENGINEER WITH READING OF SR 74 WITH PVC. IV ACCESS REMAINS INTACT AND PATENT. ALL OF NURSING NEEDS MET AND RENDERED. ALL DUE MEDS GIVEN ORDERED. DENIES PAIN AT THIS TIME. SAFETY PRECAUTIONS IMPLEMENTED WITH BED LOCKED, BILATERAL SIDE RAILS UP, BED ALARM ON, BED IN THE LOWEST POSITION, AND CALL LIGHT WITHIN EASY REACH. WILL ENDORSE PLAN OF CARE TO DAYSHIFT RN.
[2020-05-21] MEDS: DEXAMETHASONE SOD PHOSPHATE 10 MG/ML VIAL IV SCH (08:18)
[2020-05-21] MEDS: PANTOPRAZOLE 40 MG TABLET.DR PO SCH (08:18)
[2020-05-21] MEDS: ASPIRIN 81 MG TAB.CHEW PO SCH (08:18)
[2020-05-21] MEDS: ENOXAPARIN SODIUM 40 MG/0.4 ML DISP.SYRIN SQ SCH (08:21)
[2020-05-21] MEDS: INSULIN REGULAR, HUMAN 100 UNIT/ML 3 ML VIAL SQ PRN ×2 (11:42→17:03)
[2020-05-21] MEDS ORDERED: INSULIN GLARGINE, 100 UNIT/ML CARTRIDGE SQ SCH (15:00)
[2020-05-21] MEDS: INSULIN GLARGINE, 100 UNIT/ML CARTRIDGE SQ SCH (17:04)
--- NOTE | 2020-05-21 17:05 | NUR ---
RN Notes Patient was noted with blood sugar of 408. Patient is noted to be noncompliant with diet. Educated of risks and benefits. Patient was able to verbalize understanding but patient states "I will remain noncompliant and choose to eat what I can." MD made aware with no additional coverage ordered.
--- NOTE | 2020-05-21 19:32 | NUR ---
RN NOTE Patient is in bed, awake, alert and oriented x4. Patient is verbally responsive. Breathing even and non labored. Patient is currently on 15L via NRB and tolerating well. No episodes of desaturation noted. No shortness of breath. Patient continues on tele monitoring noted to be NSR. Patient is noted with IV site to right FA 22G noted to patent and intact. Skin is noted intact and warm. Accu checks rendered and insulin administered as per protocol. Bed is locked and in lowest position. All needs attended to promptly. Will continue plan of care as ordered.
[2020-05-21] MEDS: HYDROCODONE/APAP 5/325MG TABLET PO PRN (22:53)
[2020-05-22] VITALS: BP_SYST 117; BP_SYST 141; BP_DIAS 76; BP_DIAS 91
--- NOTE | 2020-05-22 02:05 | NUR ---
PT COMPLAINING OF LOUD SOUND OF NON REBREATHER, ATTEMPTED TO TITRATE OXYGEN PATIENT SATURATING 91% ON SIMPLE MASK AT 10 LITERS. PT DENIES SOB. WILL CONT TO MONITOR. VERBALIZED UNDERSTANDING TO CALL FOR HELP IF HE EXPERIENCES SOB OR NEW RESP SYMPTOMS.
[2020-05-22] MEDS: INSULIN REGULAR, HUMAN 100 UNIT/ML 3 ML VIAL SQ PRN ×3 (06:46→17:29)
[2020-05-22 06:50] LABS: BASOPHILS % (AUTO) 0.2 % (0.0-2.0); EOSINOPHILS % (AUTO) 0.4 % (0.0-6.0); HEMATOCRIT 44 % (39-51); HEMOGLOBIN 15.1 g/dL (13.5-17.5); LYMPHOCYTES # (AUTO) 1.6 /CMM (0.8-4.8); LYMPHOCYTES % (AUTO) 16.3 % (20.0-44.0); MEAN CORPUSCULAR HGB CONC 35 g/dl (31.0-36.0); MEAN CORPUSCULAR VOLUME 86 fL (80-96); MONOCYTES # (AUTO) 0.6 /CMM (0.1-1.30); MONOCYTES % (AUTO) 6.1 % (2.0-12.0); NEUTROPHILS # (AUTO) 7.7 /CMM (1.8-8.9); PLATELET COUNT (AUTO) 431 /CMM (150-450); RED BLOOD CELL COUNT(AUTO) 5.06 MIL/uL (4.5-6.0)
[2020-05-22 08:00] VITALS: BP 121/71
[2020-05-22 08:03] LABS: CALCIUM, SERUM 8.8 mg/dL (8.5-10.1); CREATININE 0.9 mg/dL (0.6-1.3); PHOSPHORUS 3.3 mg/dL (2.5-4.9); POTASSIUM 3.6 mmol/L (3.5-5.1)
[2020-05-22] MEDS: BLOOD SUGAR DIAGNOSTIC 1 EACH STRIP VI SCH ×4 (08:05→22:07)
[2020-05-22 08:06] VITALS: BP 121/71
[2020-05-22] MEDS: DEXAMETHASONE SOD PHOSPHATE 10 MG/ML VIAL IV SCH (08:11)
[2020-05-22] MEDS: ASPIRIN 81 MG TAB.CHEW PO SCH (08:11)
[2020-05-22] MEDS: PANTOPRAZOLE 40 MG TABLET.DR PO SCH (08:11)
[2020-05-22] MEDS: ENOXAPARIN SODIUM 40 MG/0.4 ML DISP.SYRIN SQ SCH (08:12)
[2020-05-22 10:00] VITALS: BP 134/55
[2020-05-22 16:00] VITALS: BP 152/76
--- NOTE | 2020-05-22 19:27 | NUR ---
RN NOTE Patient is in bed, awake, alert and oriented x4. Patient is verbally responsive. Breathing even and non labored. Patient is currently on 8L via simple face mask and tolerating well. No episodes of desaturation noted. No shortness of breath. Patient continues on tele monitoring noted to be NSR. Patient is noted with IV site to right FA 22G noted to patent and intact. Skin is noted intact and warm. Accu checks rendered and insulin administered as per protocol. Bed is locked and in lowest position. All needs attended to promptly. Will endorse to continue plan of care as ordered.
[2020-05-22 20:00] VITALS: BP_SYST 101; BP_SYST 160; BP_DIAS 75; BP_DIAS 80
[2020-05-22] MEDS ORDERED: INSULIN GLARGINE, 100 UNIT/ML CARTRIDGE SQ SCH (22:00)
[2020-05-22] MEDS: INSULIN GLARGINE, 100 UNIT/ML CARTRIDGE SQ SCH (22:13)
[2020-05-22] MEDS: *INSULIN REGULAR(HUMULIN R)HUM 100 UNIT/ML VIAL SQ PRN (22:25)
[2020-05-23] VITALS: BP 146/86
[2020-05-23] MEDS: HYDROCODONE/APAP 5/325MG TABLET PO PRN (00:49)
[2020-05-23 04:00] VITALS: BP 142/61
[2020-05-23] MEDS: BLOOD SUGAR DIAGNOSTIC 1 EACH STRIP VI SCH ×4 (06:48→21:13)
[2020-05-23] MEDS: INSULIN REGULAR, HUMAN 100 UNIT/ML 3 ML VIAL SQ PRN ×3 (06:49→17:03)
[2020-05-23 07:33] LABS: BASOPHILS % (AUTO) 0.2 % (0.0-2.0); EOSINOPHILS % (AUTO) 0.2 % (0.0-6.0); HEMATOCRIT 44 % (39-51); HEMOGLOBIN 14.6 g/dL (13.5-17.5); LYMPHOCYTES % (AUTO) 18.9 % (20.0-44.0); MEAN CORPUSCULAR HGB CONC 34 g/dl (31.0-36.0); MEAN CORPUSCULAR VOLUME 88 fL (80-96); MONOCYTES # (AUTO) 0.7 /CMM (0.1-1.30); NEUTROPHILS # (AUTO) 7.8 /CMM (1.8-8.9); NEUTROPHILS % (AUTO) 73.7 % (43.0-81.0); PLATELET COUNT (AUTO) 439 /CMM (150-450); RED BLOOD CELL COUNT(AUTO) 4.97 MIL/uL (4.5-6.0); WHITE BLOOD COUNT (AUTO) 10.6 K/uL (4.3-11.0)
[2020-05-23 07:38] LABS: CREATININE 0.7 mg/dL (0.6-1.3); POTASSIUM 4.1 mmol/L (3.5-5.1)
--- NOTE | 2020-05-23 07:45 | NUR ---
SEAFOOD HARVESTER NOTES PATIENT RECEIVED IN BED RESTING COMFORTABLY, ALERT AND ORIENTED X 3. ON NASAL CANNULA 6 LITERS, WITH NON-LABORED BREATHING, AND NO RESPIRATORY DISTRESS AT THIS TIME. ON SHEET MILL SUPERVISOR, SINUS MAISHA 57, WITH PAC. SKIN WARM AND DRY, IV ACCESS INTACT AND PATENT. PATIENT DENIES ANY PAIN OR DISCOMFORT AT THIS TIME. SAFETY PRECAUTION IMPLEMENTED WITH BED LOCKED, BILATERAL SIDE RAILS UP, AND CALL LIGHT WITHIN EASY REACH. WILL CONTINUE TO MONITOR.
[2020-05-23 08:00] VITALS: BP 152/93
--- NOTE | 2020-05-23 08:07 | NUR ---
RN PM CLOSING NOTE. PT AXOX3. BED DOWN LOCKED SRX2. PT PLACED ON HUMIDIFIED 6LNC AND SATURATING AT 91%. PT DESATURATES WHEN TALKING FOR PROLONGED PERIODS DOWN TO 88%. PT DENIES SOB. CALL LIGHT IN REACH VERBALIZED UNDERSTANDING TO CALL FOR ASSISTANCE IF NEEDED.
[2020-05-23] MEDS: ASPIRIN 81 MG TAB.CHEW PO SCH (08:55)
[2020-05-23] MEDS: PANTOPRAZOLE 40 MG TABLET.DR PO SCH (08:55)
[2020-05-23] MEDS: DEXAMETHASONE SOD PHOSPHATE 10 MG/ML VIAL IV SCH (08:57)
[2020-05-23] MEDS: ENOXAPARIN SODIUM 40 MG/0.4 ML DISP.SYRIN SQ SCH (08:59)
--- NOTE | 2020-05-23 11:40 | NUR ---
CASE MANAGEMENT DIRECTOR NOTES PATIENT NON-COMPLAINT WITH DIET PLAN ENCOURAGE AND EDUCATED ON DIET PLAN, PATIENT RESPOND WAS PASSIVE AND STATES HE FOLLOWS THE DIET PLAN ACCORDINGLY. WILL CONTINUE TO MONITOR PATIENT.
[2020-05-23 12:00] VITALS: BP 154/84
[2020-05-23 16:00] VITALS: BP 146/58
--- NOTE | 2020-05-23 17:00 | NUR ---
RN NOTES INFORMED DR MA ABOUT PATIENT BLOOD SUGAR OF 439, NO NEW ORDERS MADE. EDUCATED THE IMPORTANCE OF DIET REGIMEN AND PLAN OF COMPLIANCE, PATIENT VERBALIZED UNDERSTANDING. WILL CONTINUE TO MONITOR PATIENT.
--- NOTE | 2020-05-23 19:15 | NUR ---
BILINGUAL CALL CENTER REPRESENTATIVE NOTES PATIENT IN BED, ALERT AND ORIENTED X 3-4. ON NASAL CANNULA 6 LITERS, TOLERATING OXYGEN AT THIS TIME WITH NO RESPIRATORY DISTRESS PRESENT AT THIS TIME. ON AFTERNOON BABYSITTER, SINUS RHYTHM, PATIENT SKIN KEPT CLEAN, WARM AND DRY TO TOUCH. IV ACCESS INTACT AND PATENT. MET ALL OF PATIENT'S NEEDS. PATIENT PRESENTING WITH NO PAIN AT THIS TIME. SAFETY PRECAUTIONS IMPLEMENTED WITH BED LOCKED, BILATERAL SIDE RAILS UP, BED ALARM ON, BED IN THE LOWEST POSITION, AND CALL LIGHT WITHIN EASY REACH. WILL ENDORSE PLAN OF CARE TO UPCOMING RN.
[2020-05-23 20:00] VITALS: BP 128/59
[2020-05-23] MEDS: INSULIN GLARGINE, 100 UNIT/ML CARTRIDGE SQ SCH (21:14)
[2020-05-23] MEDS: *INSULIN REGULAR(HUMULIN R)HUM 100 UNIT/ML VIAL SQ PRN (21:16)
[2020-05-24] VITALS: BP 132/73
[2020-05-24 04:00] VITALS: BP 118/66
--- NOTE | 2020-05-24 06:00 | NUR ---
FUSION JUNCTURE GRINDER CLOSING NOTES: PT IN BED, A/O X4. NO COMPLAIN OF PAIN. CALL LIGHT WITHIN REACH. BED IN LOWEST AND LOCKED POSITION. NO S/S OF DISTRESS NOTED. PT REFUSED THE LANTUS LAST NIGHT.
[2020-05-24 06:38] LABS: BASOPHILS % (AUTO) 0.1 % (0.0-2.0); EOSINOPHILS % (AUTO) 0.2 % (0.0-6.0); HEMATOCRIT 45 % (39-51); HEMOGLOBIN 15.1 g/dL (13.5-17.5); LYMPHOCYTES # (AUTO) 2.7 /CMM (0.8-4.8); LYMPHOCYTES % (AUTO) 18.9 % (20.0-44.0); MEAN CORPUSCULAR HGB CONC 33 g/dl (31.0-36.0); MEAN CORPUSCULAR VOLUME 86 fL (80-96); MONOCYTES # (AUTO) 0.9 /CMM (0.1-1.30); MONOCYTES % (AUTO) 6.2 % (2.0-12.0); NEUTROPHILS # (AUTO) 10.8 /CMM (1.8-8.9); NEUTROPHILS % (AUTO) 74.6 % (43.0-81.0); PLATELET COUNT (AUTO) 462 /CMM (150-450); RED BLOOD CELL COUNT(AUTO) 5.23 MIL/uL (4.5-6.0); WHITE BLOOD COUNT (AUTO) 14.4 K/uL (4.3-11.0)
[2020-05-24 06:59] LABS: CALCIUM, SERUM 9.2 mg/dL (8.5-10.1); CREATININE 0.8 mg/dL (0.6-1.3); POTASSIUM 4.4 mmol/L (3.5-5.1)
[2020-05-24] MEDS: INSULIN REGULAR, HUMAN 100 UNIT/ML 3 ML VIAL SQ PRN ×3 (07:10→17:40)
[2020-05-24] MEDS: BLOOD SUGAR DIAGNOSTIC 1 EACH STRIP VI SCH ×4 (07:12→22:03)
[2020-05-24 08:00] VITALS: BP 131/69
--- NOTE | 2020-05-24 08:00 | NUR ---
ms rn received on bed, awake,alert,oriented x4,not in any form of distress, respirations even and unlabored,no sob noted,lungs are diminished,abdomen soft,positive bowel sounds,denies pain at this time,all needs attended.
--- NOTE | 2020-05-24 09:00 | NUR ---
ms clark breakfast served,due meds given,tolerated well.
[2020-05-24] MEDS: PANTOPRAZOLE 40 MG TABLET.DR PO SCH (09:58)
[2020-05-24] MEDS: ASPIRIN 81 MG TAB.CHEW PO SCH (09:58)
[2020-05-24] MEDS: DEXAMETHASONE SOD PHOSPHATE 10 MG/ML VIAL IV SCH (09:58)
[2020-05-24] MEDS: ENOXAPARIN SODIUM 40 MG/0.4 ML DISP.SYRIN SQ SCH (09:59)
--- NOTE | 2020-05-24 12:00 | NUR ---
ms rn on bedside table ,eating.
[2020-05-24 16:00] VITALS: BP 132/69
--- NOTE | 2020-05-24 17:30 | NUR ---
ms clark [id number] units of insulin given sq.
--- NOTE | 2020-05-24 19:00 | NUR ---
ms rn on bed, no distress noted all needs attended.
[2020-05-24 20:00] VITALS: BP 144/62
[2020-05-24] MEDS: *INSULIN REGULAR(HUMULIN R)HUM 100 UNIT/ML VIAL SQ PRN (22:02)
[2020-05-24] MEDS: INSULIN GLARGINE, 100 UNIT/ML CARTRIDGE SQ SCH (22:03)
[2020-05-24] MEDS: HYDROCODONE/APAP 5/325MG TABLET PO PRN (22:16)
[2020-05-25] VITALS (7 sets, daily range): BP systolic 120–130; BP diastolic 58–76
[2020-05-25] MEDS: BLOOD SUGAR DIAGNOSTIC 1 EACH STRIP VI SCH ×4 (07:03→21:39)
[2020-05-25] MEDS: INSULIN REGULAR, HUMAN 100 UNIT/ML 3 ML VIAL SQ PRN ×2 (07:05→12:28)
--- NOTE | 2020-05-25 08:30 | NUR ---
RN NOTE Patient is refusing to eat recommended [facility] diet. Educated the patient on the importance of following the dietitian's recommendation in order to manage diabetes and blood sugar levels. Patient refused to comply and was upset, throwing items at the wall. MD is aware of patient's non-compliance.
[2020-05-25] MEDS: ASPIRIN 81 MG TAB.CHEW PO SCH (08:32)
[2020-05-25] MEDS: DEXAMETHASONE SOD PHOSPHATE 10 MG/ML VIAL IV SCH (08:32)
[2020-05-25] MEDS: ENOXAPARIN SODIUM 40 MG/0.4 ML DISP.SYRIN SQ SCH (08:34)
[2020-05-25] MEDS: PANTOPRAZOLE 40 MG TABLET.DR PO SCH (08:37)
--- NOTE | 2020-05-25 12:28 | NUR ---
RN NOTE Patient refused insulin at this time.
[2020-05-25] MEDS: *INSULIN REGULAR(HUMULIN R)HUM 100 UNIT/ML VIAL SQ PRN ×2 (17:19→21:37)
--- NOTE | 2020-05-25 19:40 | NUR ---
RN CLOSING NOTE Patient is resting in bed, A/O x4, showing no signs of acute distress or SOB, saturating 93% on 3L NC. Iv line is clean and intact flushing well. All patient needs met, all due medications given, patient is independent with self care. Will endorse to cage shift manager for CORIE.
[2020-05-25] MEDS: INSULIN GLARGINE, 100 UNIT/ML CARTRIDGE SQ SCH (21:37)
[2020-05-25] MEDS: HYDROCODONE/APAP 5/325MG TABLET PO PRN (22:30)
[2020-05-26] VITALS: BP 153/65
[2020-05-26 04:00] VITALS: BP 132/69
[2020-05-26] MEDS: BLOOD SUGAR DIAGNOSTIC 1 EACH STRIP VI SCH ×4 (07:06→21:39)
--- NOTE | 2020-05-26 07:06 | NUR ---
BLOOD SUGAR- 109, NO INSULIN COVERAGE NEEDED.
--- NOTE | 2020-05-26 07:16 | NUR ---
RN NOTES RECEIVED PATIENT IN BED, ASLEEP AND AROUSABLE TO VERBAL AND TACTILE STIMULI. ALERT AND ORIENTED X4. HOB ELEVATED. RIGHT FA SL # 20 INTACT AND PATENT. BED IN LOWEST POSITION, , LOCKED. BED ALARM ON. FREQUENT VISUAL CHECK DONE.
[2020-05-26 07:39] LABS: CALCIUM, SERUM 9.2 mg/dL (8.5-10.1); CREATININE 0.7 mg/dL (0.6-1.3); POTASSIUM 4.3 mmol/L (3.5-5.1)
[2020-05-26 08:00] VITALS: BP 145/75
[2020-05-26] MEDS: PANTOPRAZOLE 40 MG TABLET.DR PO SCH (08:31)
[2020-05-26] MEDS: DEXAMETHASONE SOD PHOSPHATE 10 MG/ML VIAL IV SCH (08:31)
[2020-05-26] MEDS: ASPIRIN 81 MG TAB.CHEW PO SCH (08:31)
[2020-05-26] MEDS: ENOXAPARIN SODIUM 40 MG/0.4 ML DISP.SYRIN SQ SCH (08:35)
--- NOTE | 2020-05-26 09:00 | NUR ---
RN NOTES PATIENT NON COMPLIANT WITH TELE MONITOR BOX BEING APPLIED. PATIENT KEEPS REMOVING IT DESPITE OF EDUCATION AND RISKS AND BENEFITS.
[2020-05-26 10:37] LABS: BASOPHILS % (AUTO) 0.1 % (0.0-2.0); EOSINOPHILS % (AUTO) 0.3 % (0.0-6.0); HEMATOCRIT 48 % (39-51); HEMOGLOBIN 15.6 g/dL (13.5-17.5); LYMPHOCYTES % (AUTO) 22.6 % (20.0-44.0); MEAN CORPUSCULAR HGB CONC 33 g/dl (31.0-36.0); MEAN CORPUSCULAR VOLUME 88 fL (80-96); MONOCYTES # (AUTO) 0.6 /CMM (0.1-1.30); MONOCYTES % (AUTO) 4.4 % (2.0-12.0); NEUTROPHILS # (AUTO) 9.8 /CMM (1.8-8.9); NEUTROPHILS % (AUTO) 72.6 % (43.0-81.0); PLATELET COUNT (AUTO) 447 /CMM (150-450); RED BLOOD CELL COUNT(AUTO) 5.37 MIL/uL (4.5-6.0); WHITE BLOOD COUNT (AUTO) 13.5 K/uL (4.3-11.0)
[2020-05-26 12:00] VITALS: BP 139/65
[2020-05-26] MEDS: INSULIN REGULAR, HUMAN 100 UNIT/ML 3 ML VIAL SQ PRN ×2 (13:07→17:54)
--- NOTE | 2020-05-26 15:00 | NUR ---
RN NOTES NOTED PATIENT REMOVING O2, NO S/S OF RESPIRATORY OBSERVED.
[2020-05-26 16:00] VITALS: BP 121/57
--- NOTE | 2020-05-26 18:55 | NUR ---
RN NOTES PATIENT RESTING COMFORTABLY IN BED. DENIES ANY C/O PAIN NOR DISCOMFORT AT THIS TIME. HOB ELEVATED. REMAIN ON O2 AT 2L.MIN VIA NC JANES WELL. RIGHT FA SL # 20 INTACT AND PATENT. BED IN LOWEST POSITION, , LOCKED. BED ALARM ON. IN NO APPARENT DISTRESS.
--- NOTE | 2020-05-26 19:30 | NUR ---
TELE/RN OPENING NOTES RECEIVED PATIENT IN BED RESTING. PATIENT IS ALERT AND ORIENTED X 4. PATIENT BREATHING IS EVEN AND UNLABORED, NO SIGNS OF RESPIRATORY DISTRESS NOTED. PATIENT HAS RIGHT FA #20G SL. SAFETY MEASURES ARE IN PLACE, BED IS LOCKED AND PLACED IN THE LOW POSITION , SIDE RAILS UP X 2, CALL LIGHT WITHIN REACH. WILL CONTINUE TO MONITOR THROUGH OUT SHIFT.
[2020-05-26 20:00] VITALS: BP 125/67
--- NOTE | 2020-05-26 21:03 | NUR ---
RN NOTES PATIENT REMOVES O2, NOTED NO SOB.
[2020-05-26] MEDS: INSULIN GLARGINE, 100 UNIT/ML CARTRIDGE SQ SCH (21:39)
[2020-05-26] MEDS: HYDROCODONE/APAP 5/325MG TABLET PO PRN (21:40)
[2020-05-27] VITALS (8 sets, daily range): BP systolic 101–138; BP diastolic 46–84
[2020-05-27] MEDS: BLOOD SUGAR DIAGNOSTIC 1 EACH STRIP VI SCH ×4 (06:33→21:52)
--- NOTE | 2020-05-27 07:00 | NUR ---
TELE/RN CLOSING NOTES PATIENT IN BED RESTING. PATIENT IS ALERT AND ORIENTED X 4. PATIENT BREATHING IS EVEN AND UNLABORED, NO SIGNS OF RESPIRATORY DISTRESS NOTED. PATIENT REMOVES NC OFTEN THROUGH OUT SHIFT, RISK AND BENEFITS EXPLAINED. PATIENT HAS RIGHT FA #20G SL. ALL NEEDS HAVE BEEN MET DURING SHIFT. SAFETY MEASURES ARE IN PLACE, BED IS LOCKED AND PLACED IN THE LOW POSITION , SIDE RAILS UP X 2, CALL LIGHT WITHIN REACH. WILL ENDORSE CARE TO DAY SHIFT NURSE.
[2020-05-27 07:02] LABS: BASOPHILS % (AUTO) 0.1 % (0.0-2.0); EOSINOPHILS % (AUTO) 0.1 % (0.0-6.0); HEMATOCRIT 47 % (39-51); HEMOGLOBIN 15.7 g/dL (13.5-17.5); LYMPHOCYTES # (AUTO) 3.3 /CMM (0.8-4.8); LYMPHOCYTES % (AUTO) 22.4 % (20.0-44.0); MEAN CORPUSCULAR HGB CONC 33 g/dl (31.0-36.0); MEAN CORPUSCULAR VOLUME 88 fL (80-96); MONOCYTES # (AUTO) 0.8 /CMM (0.1-1.30); MONOCYTES % (AUTO) 5.6 % (2.0-12.0); NEUTROPHILS # (AUTO) 10.5 /CMM (1.8-8.9); NEUTROPHILS % (AUTO) 71.8 % (43.0-81.0); PLATELET COUNT (AUTO) 440 /CMM (150-450); RED BLOOD CELL COUNT(AUTO) 5.35 MIL/uL (4.5-6.0); WHITE BLOOD COUNT (AUTO) 14.6 K/uL (4.3-11.0)
--- NOTE | 2020-05-27 07:52 | NUR ---
PRODUCT OPERATIONS ASSOCIATE OPEN NOTES PATIENT IS A/O X 4 WITH NO SIGNS OF DISTRESS ON 2L OF NASAL CANNULA. IV R FA #20G SL. NO COMPLAIN OF PAIN AT THIS TIME. PER NIGHT SIFT PATIENT REFUSES TELE BOX. SAFETY MEASURES ARE APPLIED, BED IS IN LOW POSITION SIDE RAILS UP X 2. CALL LIGHT WITHIN REACH. WILL CONTINUE TO MONITOR.
[2020-05-27 08:16] LABS: CALCIUM, SERUM 9.2 mg/dL (8.5-10.1); CREATININE 0.8 mg/dL (0.6-1.3); POTASSIUM 4.3 mmol/L (3.5-5.1)
[2020-05-27] MEDS: PANTOPRAZOLE 40 MG TABLET.DR PO SCH (08:19)
[2020-05-27] MEDS: ASPIRIN 81 MG TAB.CHEW PO SCH (08:19)
[2020-05-27] MEDS: DEXAMETHASONE SOD PHOSPHATE 10 MG/ML VIAL IV SCH (08:19)
[2020-05-27] MEDS: ENOXAPARIN SODIUM 40 MG/0.4 ML DISP.SYRIN SQ SCH (08:25)
[2020-05-27] MEDS: INSULIN REGULAR, HUMAN 100 UNIT/ML 3 ML VIAL SQ PRN ×3 (13:06→21:54)
--- NOTE | 2020-05-27 19:40 | NUR ---
RN CLOSING NOTES PATIENT IS A/O X 4 WITH NO SIGNS OF DISTRESS ON 2L OF NASAL CANNULA. IV R FA #20G SL. NO COMPLAIN OF PAIN AT THIS TIME. PATIENT KEPT CLEAN AND DRY. ALL NEEDS, CARE, TREATMENT, AND MEDICATIONS WERE ADMINISTERED ANTICIPATED PER ORDER. SAFETY MEASURES ARE APPLIED, BED IS IN LOW POSITION SIDE RAILS UP X 2. CALL LIGHT WITHIN REACH WILL ENDORSE TO THE FRENCH POLISHER NURSE.
--- NOTE | 2020-05-27 20:21 | NUR ---
SUPERVISOR COATING OPENING NOTE Patient awake in bed, A/O x4, ambulatory. Breathing even, unlabored on 2LPM NC. Afebrile. Denies pain. No acute distress or SOB noted. Skin warm, pink, dry, appropriate for ethnicity. IV site RFA 20g saline locked, patent and intact. BS active. Patient is continent. Appetite is good. Bed in low position, wheels locked, side rails up x2, call light within reach.
[2020-05-27] MEDS: INSULIN GLARGINE, 100 UNIT/ML CARTRIDGE SQ SCH (21:55)
[2020-05-28] MEDS: HYDROCODONE/APAP 5/325MG TABLET PO PRN (00:06)
[2020-05-28 06:41] LABS: BASOPHILS % (AUTO) 0.1 % (0.0-2.0); EOSINOPHILS % (AUTO) 0.2 % (0.0-6.0); HEMATOCRIT 45 % (39-51); LYMPHOCYTES # (AUTO) 3.1 /CMM (0.8-4.8); LYMPHOCYTES % (AUTO) 24.5 % (20.0-44.0); MEAN CORPUSCULAR HGB CONC 33 g/dl (31.0-36.0); MEAN CORPUSCULAR VOLUME 87 fL (80-96); MONOCYTES # (AUTO) 0.9 /CMM (0.1-1.30); NEUTROPHILS # (AUTO) 8.7 /CMM (1.8-8.9); NEUTROPHILS % (AUTO) 68.2 % (43.0-81.0); PLATELET COUNT (AUTO) 404 /CMM (150-450); RED BLOOD CELL COUNT(AUTO) 5.21 MIL/uL (4.5-6.0); WHITE BLOOD COUNT (AUTO) 12.8 K/uL (4.3-11.0)
[2020-05-28] MEDS: BLOOD SUGAR DIAGNOSTIC 1 EACH STRIP VI SCH ×4 (06:42→22:30)
[2020-05-28] MEDS: PANTOPRAZOLE 40 MG TABLET.DR PO SCH (06:43)
[2020-05-28 06:55] LABS: CREATININE 0.7 mg/dL (0.6-1.3); POTASSIUM 4.5 mmol/L (3.5-5.1)
--- NOTE | 2020-05-28 07:13 | NUR ---
EXPENSE ANALYST CLOSING NOTE Patient awake in bed, A/O x4, ambulatory. Breathing even, unlabored on 2LPM NC. No acute distress or SOB noted. Skin warm, pink, dry, appropriate for ethnicity. IV site RFA 20g saline locked, patent and intact. Patient is continent. Void 2x. Urine output clear and yellow without difficulty. Appetite is good. Bed in low position, wheels locked, side rails up x2, call light within reach. Will endorse to oncoming nurse.
--- NOTE | 2020-05-28 07:25 | NUR ---
CLERK OF COURT OPENING NOTES Patient is in bed, awake and verbally responsive. A/O x4, able to make needs known. Breathing even, unlabored on 2LPM NC, no sob nor respiratory distress. IV line on RFA 20g, patent and intact. Able to ambulate w/in the room w/o adverse changes. Seen eating breakfast. Safety precs in place: bed locked and on lowest position, side rails up x2, call light within reach. Will continue to monitor.
[2020-05-28 08:00] VITALS: BP 156/72
[2020-05-28] MEDS: ENOXAPARIN SODIUM 40 MG/0.4 ML DISP.SYRIN SQ SCH (08:53)
[2020-05-28] MEDS: ASPIRIN 81 MG TAB.CHEW PO SCH (08:53)
[2020-05-28] MEDS: INSULIN REGULAR, HUMAN 100 UNIT/ML 3 ML VIAL SQ PRN ×2 (13:00→17:56)
[2020-05-28 16:00] VITALS: BP 108/58
[2020-05-28 20:00] VITALS: BP 94/56
--- NOTE | 2020-05-28 20:36 | NUR ---
MS2/RN RECEIVED PATIENT SITTING AT EDGE OF BED AWAKE, ALERT, ORIENTED, COMFORTABLE, NO C/O PAIN, NO DISTRESS NOTED, ON ROOM AIR, TOLERATING WELL, CALL LIGHT IN REACH. WILL MONITOR.
[2020-05-28] MEDS: *INSULIN REGULAR(HUMULIN R)HUM 100 UNIT/ML VIAL SQ PRN (22:27)
[2020-05-28] MEDS: INSULIN GLARGINE, 100 UNIT/ML CARTRIDGE SQ SCH (22:34)
[2020-05-28] MEDS ORDERED: ZOLPIDEM TARTRATE 5 MG TABLET PO PRN (23:30)
[2020-05-29] VITALS: BP 123/40
[2020-05-29 05:43] LABS: ABG BASE EXCESS 1.3 mmol/L; ABG OXYGEN SATURATION 90.4 % (92.0-98.5); ABG PCO2 39.6 mmHg (35.0-45.0); ABG PH 7.428 (7.350-7.450); AaDO2 47.3 mmHg; COHb 1.4 % (0.5-1.5); MetHb 0.3 % (0.0-1.5); O2Hb 88.9 % (94.0-97.0); SITE, ABG Right Radial; VENT MODE, BG RA
--- NOTE | 2020-05-29 06:15 | NUR ---
MS2/RN PATIENT IS AWAKE, ALERT, ORIENTED, COMFORTABLE, NO C/O PAIN, NO DISTRESS NOTED, ALL NEEDS ATTENDED AT THIS TIME, WILL CONTINUE TO MONITOR.
[2020-05-29] MEDS: BLOOD SUGAR DIAGNOSTIC 1 EACH STRIP VI SCH ×2 (07:01→12:14)
[2020-05-29 07:09] LABS: BASOPHILS % (AUTO) 0.3 % (0.0-2.0); EOSINOPHILS % (AUTO) 0.7 % (0.0-6.0); HEMATOCRIT 43 % (39-51); HEMOGLOBIN 14.8 g/dL (13.5-17.5); LYMPHOCYTES # (AUTO) 2.7 /CMM (0.8-4.8); LYMPHOCYTES % (AUTO) 29.8 % (20.0-44.0); MEAN CORPUSCULAR HGB CONC 34 g/dl (31.0-36.0); MEAN CORPUSCULAR VOLUME 86 fL (80-96); MONOCYTES # (AUTO) 0.7 /CMM (0.1-1.30); MONOCYTES % (AUTO) 8.2 % (2.0-12.0); NEUTROPHILS # (AUTO) 5.5 /CMM (1.8-8.9); PLATELET COUNT (AUTO) 335 /CMM (150-450); RED BLOOD CELL COUNT(AUTO) 5.02 MIL/uL (4.5-6.0)
[2020-05-29 07:41] LABS: CALCIUM, SERUM 8.5 mg/dL (8.5-10.1); CREATININE 0.6 mg/dL (0.6-1.3); POTASSIUM 3.3 mmol/L (3.5-5.1)
--- NOTE | 2020-05-29 07:57 | NUR ---
MS/RN OPENING NOTES RECEIVED PATIENT IN BED. AWAKE. ALERT AND ORIENTED X4. PATIENT IS ON ROOM AIR, SATURATION 93%. PATIENT IN NO APPARENT RESPIRATORY DISTRESS NOTED. NO COMPLAINED OF PAIN AT THIS TIME. TELE MONITOR READING SINUS RHYTHM 90. WILL CONTINUE TO MONITOR.
[2020-05-29] MEDS: PANTOPRAZOLE 40 MG TABLET.DR PO SCH (08:00)
[2020-05-29 08:15] VITALS: BP 124/77
[2020-05-29] MEDS: ASPIRIN 81 MG TAB.CHEW PO SCH (08:47)
[2020-05-29] MEDS: POTASSIUM CHLORIDE 20 MEQ TAB.PRT.SR PO SCH ×2 (08:48→09:55)
[2020-05-29] MEDS: ENOXAPARIN SODIUM 40 MG/0.4 ML DISP.SYRIN SQ SCH (08:57)
[2020-05-29] MEDS ORDERED: ASPI-1169 PO (09:50)
[2020-05-29 12:14] VITALS: BP 119/86
[2020-05-29] MEDS: INSULIN REGULAR, HUMAN 100 UNIT/ML 3 ML VIAL SQ PRN (12:30)
--- NOTE | 2020-05-29 14:51 | NUR ---
MS/RN NOTES DR. MARSHALL ORDER ATIVAN 0.5 MG 1 TAB P.O. ONCE. NOTED AND CARRIED OUT.
[2020-05-29] MEDS ORDERED: LORAZEPAM 0.5 MG TABLET PO ONE (15:00)
--- NOTE | 2020-05-29 16:15 | NUR ---
RN NOTES PATIENT IS ALERT AND ORIENTED X4. PATIENT IN NO APPARENT RESPIRATORY DISTRESS NOTED. NO COMPLAINED OF PAIN. SEEN AND EXAMINED BY MD WITH ORDERS MADE AND CARRIED OUT. ALL DUE MEDICATIONS WAS GIVEN. DISCHARGED INSTRUCTION WAS GIVEN AND PATIENT VERBALIZED UNDERSTANDING. PATIENT LEFT THE HOSPITAL IN MEDICALLY STABLE CONDITION AT 1540. AMBULATORY ALONE.
== END 2020-05-29 15:40 | disposition home health service (06) | DRG 177 ==
LOC: ER 04:24 → TRANSITION 09:10 → TELE2 05-18 06:03 → MEDSG2 05-28 20:58
PROVIDERS: ADMIT Student in an Organized Health Care Education/Training Program; ATTEND Internal Medicine
PROC: XW033E5 Introduction of Remdesivir Anti-infective into Peripheral Vein, Percutaneous Approach, New Technology Group 5 (ICD-10-PCS; principal; 2020-05-14)
PROC: XW13325 Transfusion of Convalescent Plasma (Nonautologous) into Peripheral Vein, Percutaneous Approach, New Technology Group 5 (ICD-10-PCS; 2020-05-14)
DX: U07.1 COVID-19 (principal); J96.01 Acute respiratory failure with hypoxia; J12.89 Other viral pneumonia; I21.A1 Myocardial infarction type 2; N17.0 Acute kidney failure with tubular necrosis; E87.1 Hypo-osmolality and hyponatremia; E44.0 Moderate protein-calorie malnutrition; E87.6 Hypokalemia; K74.60 Unspecified cirrhosis of liver; L40.9 Psoriasis, unspecified; Z79.899 Other long term (current) drug therapy; E11.65 Type 2 diabetes mellitus with hyperglycemia; Z88.1 Allergy status to other antibiotic agents; E86.1 Hypovolemia
CPT/HCPCS: 36415; 36600; 71045-TC; 80048-TC; 80061-TC; 80076-TC; 82947-TC; 82962-TC; 83735-TC; 83880; 84100-TC; 84484-TC; 85025-TC; 85378-TC; 85610-TC; 85730-TC; 86140-TC; 86850-TC; A4216; C9803; G0378; J0456; J0696; J1100; J1650; J1815; J7050; J7060; P9017-BL; U0003

== ENCOUNTER 2021-09-21 12:00 | Emergency (ER) | payer MEDICARE, OTHER ==
[~2021-09-21] VITALS: Ht 167.6 cm; Wt 113.4 kg
[~2021-09-21 12:00] MED LIST: ASPI-1169 PO; DULO60CA45 PO
--- NOTE | 2021-09-21 12:14 | NUR ---
BIBS THIS 66YO/MALE PATIENT, AMBULATORY, AAOX4. CAME WITH CC OF "SOB/Body Aches- Pain in neck/joints/hips-chronic"". PLACED COMFORTABLY IN BED. ATTACHED TO MONITOR. VITALS CHECKED.
--- NOTE | 2021-09-21 12:18 | NUR ---
SEEN BY DR HERNANDEZ AT BEDSIDE.
--- NOTE | 2021-09-21 12:21 | NUR ---
CXR AT BEDSIDE.
[2021-09-21] MEDS ORDERED: IBUP-1955 PO (12:45)
[2021-09-21] MEDS ORDERED: LORA-259 PO (12:45)
[2021-09-21] MEDS ORDERED: PRED50TA PO (12:45)
[2021-09-21 12:55] VITALS: BP 142/81
--- NOTE | 2021-09-21 12:56 | NUR ---
Patient given written and verbal discharge instructions. Patient verbalizes understanding of instructions. Patient is ambulatory with steady gait. Refuses offer of alf placement. Patient given list of available shelters in surrounding area.
== END 2021-09-21 12:56 | disposition home or self-care (01) ==
LOC: ER 12:02
DX: M71.50 Other bursitis, not elsewhere classified, unspecified site (principal); F41.9 Anxiety disorder, unspecified; L40.8 Other psoriasis; Z60.2 Problems related to living alone; Z79.899 Other long term (current) drug therapy
CPT/HCPCS: 71045-TC

== ENCOUNTER 2021-09-23 14:39 | Emergency (ER) | payer OTHER ==
[~2021-09-23] VITALS: Ht 172.7 cm; Wt 108.9 kg
[~2021-09-23 14:39] MED LIST changes: +IBUP-1955 PO; +LORA-259 PO; +PRED50TA PO
--- NOTE | 2021-09-23 14:43 | NUR ---
TO ER BED6. BIBRA 102 FROM C/O FOREHEAD INJURY AND R HIP PAIN S/P TRIP AND FALL. DENIES LOC. Addendum: 09/23/21 at 1705 by [email or web address] Patient discharged to home in stable condition. Written and verbal after care instructions given. Patient verbalizes understanding of instruction. Patient provided with bus pass.
[2021-09-23] MEDS ORDERED: BACI/NEOM/POLY B OINT PKT 1 UDPKT PACKET TP ONE (15:00)
[2021-09-23] MEDS ORDERED: TDAP [DIPH/PERTUSSIS/TET] 0.5 ML VIAL IM ONE ×2 (15:00→15:16)
[2021-09-23] MEDS ORDERED: BACI/NEOM/POLY B OINT PKT 1 UDPKT PACKET ONE (15:16)
[2021-09-23 17:05] VITALS: BP 151/89
== END 2021-09-23 17:07 | disposition home or self-care (01) ==
LOC: ER 14:40
DX: S00.83XA Contusion of other part of head, initial encounter (principal); Z88.8 Allergy status to other drugs, medicaments and biological substances; Z79.899 Other long term (current) drug therapy; W01.198A Fall on same level from slipping, tripping and stumbling with subsequent striking against other object, initial encounter; Y93.89 Activity, other specified; Y92.480 Sidewalk as the place of occurrence of the external cause; Y99.8 Other external cause status
CPT/HCPCS: 70450-TC; 90715